=== PATIENT | male | born 1995 | race Caucasian/White ===

== ENCOUNTER 2018-06-06 16:30 | Emergency (ER) | payer OTHER ==
[2018-06-06] MEDS ORDERED: Lidocaine 1% 5ml 10 MG/ML VIAL IVP ONE (16:43)
--- NOTE | 2018-06-06 17:22 | ED Physician Documentation ---
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 Patient is current on tetanus. Onset: just prior to arrival Where: work Severity: moderate Duration: persistent since Context: laceration Location of Injury: L hand (back of hand at 5th metacarpal) Modifying Factors: pain on movement - ROS CONST: no problems GI/: denies: nausea, vomiting NEURO: none CVS/RESP: none EYES/ENT: none MS/SKIN/LYMPH: none - PAST HX Past History: Rt handed Allergies/Adverse Reactions: Allergies Allergy/AdvReac Type Severity Reaction Status Date / Time No Known Allergies Allergy Verified 06/06/18 17:11 Home Medications: Ambulatory Orders Medication Instructions Recorded NK 06/06/18 - SOCIAL HX Smoking History: non-smoker Alcohol Use: none Drug Use: none - FAMILY HX Family History: none - VITAL SIGNS Vital Signs: Vital Signs Temp Pulse Resp BP Pulse Ox 98.3 F 95 H 18 148/82 96 06/06/18 16:33 06/06/18 16:33 06/06/18 16:33 06/06/18 16:33 06/06/18 16:33 - REVIEWED ASSESSMENTS Nursing Assessment Reviewed: Yes Vitals Reviewed: Yes Procedures Wound Location: upper extremity Wound Length: 3 cm Wound's Depth, Shape: superficial, linear Wound Explored: clean Anesthesia: 1% Lidocaine Wound Debrided: minimal Wound Repaired With: sutures Suture Size/Type: 4:0 Number of Sutures: 5 Sterile Dressing Applied?: Yes Splint Applied?: No Sling Applied?: No ED Results Lab/Radiology - Orders Orders: ED Orders Category Date Time Status Cleanse with NS and Chlorhexid 1T Care 06/06/18 16:44 Active Lidocaine 1% 5ml(IM or SUTURE) [Xylocaine] Med 06/06/18 16:43 Discontinued 50 mg IVP NOW ONE Hand Injury Physical Exam - Exam General Appearance: no acute distress, alert Hand: other (3 cm laceration back of hand at 5th metacarpal) Wrist: normal inspection Neuro: sensation nml, motor nml Vascular: no vascular compromise Tendons: tendon function nml Forearm/Elbow/Arm: uninjured above wrist Skin: warm/dry Head/ENT: nml inspection Neck/Back: nml inspection Resp/CVS: chest non-tender, breath sounds nml, heart sounds nml Abdomen: non-tender Discharge Clincal Impression: Laceration Referrals: Primary Doctor,No [Primary Care Provider] - 2 Days Additional Instructions: 1. Keep sutures dry. NO baths or swimming. Showers ok. 2. Follow up PCP within 7-10 days for suture removal 3. Return to ER for new or worsening symptoms. Condition: Stable Disposition: 01 HOME, SELF-CARE Decision to Admit: NO Date of Decison to Admit: 06/06/18 Decision Time: 18:29
[2018-06-06 17:37] VITALS: BP 124/74
== END 2018-06-06 17:38 | disposition home or self-care (01) ==
LOC: ED 16:30
DX: S61.412A Laceration without foreign body of left hand, initial encounter (principal); W22.09XA Striking against other stationary object, initial encounter; Y93.89 Activity, other specified; Y92.89 Other specified places as the place of occurrence of the external cause; Y99.0 Civilian activity done for income or pay
CPT/HCPCS: 12002; 99282; 99283